=== PATIENT | female | born 1975 ===

== ENCOUNTER 2023-10-02 05:05 | Day surgery (SDC) | payer OTHER ==
[~2023-10-02 05:05] MED LIST: B12 ACTIVE1000 MCG; FERROCITE PLUS1 EACH
[2023-10-02] MEDS ORDERED: CEFAZOLIN SODIUM 1,000 MG VIAL ONE ×2 (09:10→12:04)
[2023-10-02] MEDS ORDERED: POVIDONE-IODINE 118 ML BOTT TOP ONE (10:04)
[2023-10-02] MEDS ORDERED: ONDANSETRON HCL 2 MG/ML VIAL IV ONE (11:30)
[2023-10-02] MEDS ORDERED: GENTAMICIN SULFATE 40 MG/ML VIAL ONE (12:04)
[2023-10-03] MEDS ORDERED: CEFAZOLIN SODIUM 1,000 MG VIAL IV ONE (12:30)
[2023-10-03] MEDS ORDERED: POVIDONE-IODINE 118 ML BOTT TOP ONE (12:30)
== END 2023-10-02 14:05 | disposition home or self-care (01) ==
LOC: CIR.AMB 05:05 → SURH 11:15 → CIR.AMB 11:15 → EDSTATUS 11:15 → CIR.AMB 13:00
PROVIDERS: ATTEND Obstetrics & Gynecology
DX: N93.8 Other specified abnormal uterine and vaginal bleeding (principal); R10.2 Pelvic and perineal pain; N70.91 Salpingitis, unspecified; T83.39XA Other mechanical complication of intrauterine contraceptive device, initial encounter; N72 Inflammatory disease of cervix uteri